=== PATIENT | female | born 1980 | race Caucasian/White ===

== ENCOUNTER 2018-06-16 19:59 | Emergency (ER) | payer MEDICAID ==
[~2018-06-16] VITALS: Ht 170.2 cm; Wt 120.5 kg
[~2018-06-16 19:59] MED LIST: CLIN-96 PO; CLIN150C8 PO; LANTUS SUBCUT; METF-438 PO; PRED10TA PO
[2018-06-16] MEDS ORDERED: normal saline 1000ML IV soln IVB ONE ×2 (20:15)
[2018-06-16 21:06] VITALS: BP 121/80
[2018-06-16 21:17] LABS: CLARITY,URINE CLOUDY (Clear); COLOR,URINE YELLOW (Yellow); GLUCOSE, URINE NEGATIVE (Neg); KETONES,URINE NEGATIVE (Neg); LEUKOCYTE ESTERASE ,URINE LARGE (Neg); NITRITES, URINE POSITIVE (Neg); OCCULT BLOOD,URINE LARGE (Neg); PROTEIN,URINE 30 mg/dl (Neg); UROBILINOGEN,URINE 0.2 E.U/dL (0.2-1.0)
[2018-06-16 21:18] LABS: URINE AMPHETAMINE SCREEN NEGATIVE (Neg); URINE BARBITUATE SCREEN NEGATIVE (Neg); URINE BENZODIAZEPINES SCREEN POSITIVE (Neg); URINE CANNABINOID SCREEN POSITIVE (Neg); URINE COCAINE SCREEN NEGATIVE (Neg); URINE METHADONE SCREEN POSITIVE (Neg); URINE OPIATE SCREEN NEGATIVE (Neg); URINE PHENCYCLIDINE SCREEN NEGATIVE (Neg)
--- NOTE | 2018-06-16 21:24 | NUR ---
pt pulled iv, despite verbal cues not to. will inform dr blanc
[2018-06-16 21:30] LABS: UA COLLECTION TYPE STRAIGHT CATH
[2018-06-16 21:31] LABS: BACTERIA,URINE 2+ /HPF (Neg); SQUAMOUS EPITHELIAL CELL,UR FEW /LPF (FEW); WBC CLUMPS,URINE FEW /HPF (NEGATIVE); WBC,URINE 50-100 /HPF (0-4)
--- NOTE | 2018-06-16 22:13 | NUR ---
dr blanc found pt in room who had pulled out her second iv and wanted to ama. pt deemed fit to make medical decisions and an ama was filled out.
[2018-06-16] MEDS ORDERED: CefTRIAXone 1000mg IM Kit (w/lidocaine diluent) IM ONE (22:15)
[2018-06-16] MEDS ORDERED: SULF1TAB49 PO (22:15)
== END 2018-06-16 22:20 | disposition left against medical advice (07) ==
LOC: ER 20:01
DX: N39.0 Urinary tract infection, site not specified (principal); F19.10 Other psychoactive substance abuse, uncomplicated; R41.82 Altered mental status, unspecified; E11.9 Type 2 diabetes mellitus without complications; F12.90 Cannabis use, unspecified, uncomplicated; F15.90 Other stimulant use, unspecified, uncomplicated; F11.90 Opioid use, unspecified, uncomplicated; F17.200 Nicotine dependence, unspecified, uncomplicated; Z59.0 Homelessness; Z56.0 Unemployment, unspecified; Z88.0 Allergy status to penicillin; Z79.2 Long term (current) use of antibiotics; Z79.4 Long term (current) use of insulin; Z79.899 Other long term (current) drug therapy
CPT/HCPCS: 36415; 70450; 71045; 80305; 81001; 82948; 87040; 87077; 87088; 87186; 93005; 96360; 96372; 99284; J7030